=== PATIENT | female | born 1945 | race Caucasian/White ===

== ENCOUNTER 2017-08-08 18:41 | Emergency (ER) | payer OTHER ==
[~2017-08-08] VITALS: Ht 152.4 cm; Wt 56.2 kg
[2017-08-08 18:47] VITALS: TEMP 36.9; Ht 152.4 cm; Wt 56.2 kg
[2017-08-08] MEDS ORDERED: LORAZEPAM 0.5 MG TAB SL STA (19:00)
[2017-08-08] MEDS ORDERED: LORAZEPAM 1 MG TAB SL STA (19:00)
--- NOTE | 2017-08-08 19:07 | EMERGENCY ROOM VISIT NOTE ---
History Report prepared by Peng: Hilary Jorge Under the Supervision of: Dr. Troy Camara M.D. First contact with patient: 18:56 Chief Complaint: HYPERTENSION Stated Complaint: HIGH BLOOD PRESSURE History of Present Illness The patient is a 72 year old female who presents to the Emergency Room with complaints of sudden hypertension beginning today. She states that she was at her doctor's office to get checked before her cataract surgery. She reports that she was told her blood pressure was high, and states that she immediately had anxiety. She states that she did not have a headache or other symptoms, and would not have known that her blood pressure was elevated unless she was told. She reports that she has had hypertension before, and states that she is not on medications for it anymore. Source of History: patient Onset: today Position: other (global) Quality: other (hypertension ) Timing: other (sudden) Associated Symptoms: No headache Note: Associated symptoms: anxiety Review of Systems See HPI for pertinent positives & negatives. A total of 10 systems reviewed and were otherwise negative. Past Medical & Surgical Patient denies pertinent past medical and surgical history. Family History No pertinent family history Social History Smoking Status: Never Smoker Marital Status: Housing Status: lives with significant other Current/Historical Medications Scheduled Amlodipine Besylate (Norvasc), 1 TAB PO DAILY Allergies Coded Allergies: Penicillins (Verified Allergy, Unknown, HIVES, 08/08/17) Physical Exam Vital Signs Date Time Temp Pulse Resp B/P (MAP) Pulse Ox O2 Delivery O2 Flow Rate FiO2 08/08/17 20:15 91 20 180/93 98 Room Air 08/08/17 19:29 96 08/08/17 18:47 36.9 113 18 202/82 96 Room Air Physical Exam GENERAL: Patient is in no acute distress. Slightly anxious. HEENT: No acute trauma, normocephalic atraumatic, mucous membranes moist, no nasal congestion, no scleral icterus. NECK: No stridor, no adenopathy, no meningismus, trachea is midline. LUNGS: Clear to auscultation bilaterally, no wheeze, no rhonchi, breath sounds equal. HEART: Without murmurs gallops or rubs, regular rate and rhythm. ABDOMEN: Soft, nontender, bowel sounds positive, no hernias, no peritonitis. EXTREMITIES: No cyanosis or edema, full range of motion of all the joints without pain or difficulty, no signs for acute trauma. NEUROLOGIC: Oriented x 3, no acute motor or sensory deficits, no focal weakness. SKIN: No rash, no jaundice, no diaphoresis. Medical Decision & Procedures ER Provider Diagnostic Interpretation: Radiology results as stated below per my review and radiologist interpretation: CHEST ONE VIEW PORTABLE HISTORY: 72 years-old Female EVALUATE ALTERED MENTAL STATUS/WEAKNESS acute altered mental status COMPARISON: None available TECHNIQUE: Portable AP view of the chest FINDINGS: Cardiac silhouette is within normal limits in size. Atherosclerosis of the aorta. No pneumothorax, pleural effusion, focal airspace consolidation or overt pulmonary edema. Bones of the chest appear grossly intact. IMPRESSION: No acute process. The above report was generated using voice recognition software. It may contain grammatical, syntax or spelling errors. Electronically signed by: Geronimo Fernando M.D. 08/08/2017 8:16 PM Dictated Date/Time: 08/08/2017 8:15 PM Laboratory Results 08/08/17 19:20 Red Blood Count 5.16, Mean Corpuscular Volume 87.8, Mean Corpuscular Hemoglobin 29.8, Mean Corpuscular Hemoglobin Concent 34.0, Mean Platelet Volume 10.8, Neutrophils (%) (Auto) 60.2, Lymphocytes (%) (Auto) 25.8, Monocytes (%) (Auto) 12.7, Eosinophils (%) (Auto) 0.7, Basophils (%) (Auto) 0.3, Neutrophils # (Auto ) 4.37, Lymphocytes # (Auto) 1.87, Monocytes # (Auto) 0.92, Eosinophils # (Auto ) 0.05, Basophils # (Auto) 0.02 08/08/17 19:20 Test 08/08/17 17:10 08/08/17 19:20 Urine Color YELLOW Urine Appearance CLEAR (CLEAR) Urine pH 7.5 (4.5-7.5) Urine Specific Emery 1.011 (1.000-1.030) Urine Protein NEG (NEG) Urine Glucose (UA) NEG (NEG) Urine Ketones NEG (NEG) Urine Occult Blood NEG (NEG) Urine Nitrite NEG (NEG) Urine Bilirubin NEG (NEG) Urine Urobilinogen NEG (NEG) Urine Leukocyte Esterase NEG (NEG) White Blood Count 7.25 K/uL (4.8-10.8) Red Blood Count 5.16 M/uL (4.2-5.4) Hemoglobin 15.4 g/dL (12.0-16.0) Hematocrit 45.3 % (37-47) Mean Corpuscular Volume 87.8 fL (80-100) Mean Corpuscular Hemoglobin 29.8 pg (25-34) Mean Corpuscular Hemoglobin Concent 34.0 g/dl (32-36) Platelet Count 290 K/uL (130-400) Mean Platelet Volume 10.8 fL (7.4-10.4) Neutrophils (%) (Auto) 60.2 % Lymphocytes (%) (Auto) 25.8 % Monocytes (%) (Auto) 12.7 % Eosinophils (%) (Auto) 0.7 % Basophils (%) (Auto) 0.3 % Neutrophils # (Auto) 4.37 K/uL (1.4-6.5) Lymphocytes # (Auto) 1.87 K/uL (1.2-3.4) Monocytes # (Auto) 0.92 K/uL (0.11-0.59) Eosinophils # (Auto) 0.05 K/uL (0-0.5) Basophils # (Auto) 0.02 K/uL (0-0.2) RDW Standard Deviation 46.0 fL (36.4-46.3) RDW Coefficient of Variation 14.3 % (11.5-14.5) Immature Granulocyte % (Auto) 0.3 % Immature Granulocyte # (Auto) 0.02 K/uL (0.00-0.02) Anion Gap 6.0 mmol/L (3-11) Est Creatinine Clear Calc Drug Dose 38.8 ml/min Estimated GFR () 64.3 Estimated GFR (Non- 55.5 BUN/Creatinine Ratio 13.8 (10-20) Calcium Level 9.5 mg/dl (8.5-10.1) Total Bilirubin 0.4 mg/dl (0.2-1) Aspartate Amino Transf (AST/SGOT) 25 U/L (15-37) Alanine Aminotransferase (ALT/SGPT) 23 U/L (12-78) Alkaline Phosphatase 102 U/L (45-117) Troponin I < 0.015 ng/ml (0-0.045) Total Protein 10.0 gm/dl (6.4-8.2) Albumin 4.0 gm/dl (3.4-5.0) Globulin 6.0 gm/dl (2.5-4.0) Albumin/Globulin Ratio 0.7 (0.9-2) Thyroid Stimulating Hormone (TSH) 2.210 uIu/ml (0.300-4.500) Laboratory results reviewed by me. Medications Administered Medications (Trade) Dose Ordered Sig/Fabiola Route Start Time Stop Time Status Last Admin Dose Admin Lorazepam (Ativan Tab) 0.5 mg NOW STAT SL 08/08/17 19:00 08/08/17 19:03 DC 08/08/17 19:28 0.5 MG Amlodipine Besylate (Norvasc Tab) 5 mg NOW ONCE PO 08/08/17 20:30 08/08/17 20:31 DC 08/08/17 20:32 5 MG ECG Indication: other (hypertension) Rate (beats per minute): 100 Rhythm: normal sinus Findings: other (non-specific diffuse ST change, no ST elevation) Change: Patient's electrocardiogram interpreted by me. ED Course 1858: The patient was evaluated in room A9B. A complete history and physical exam was performed. 1899: Ordered Ativan Tab 0.5 mg SL. 2029: Ordered Amlodipine Besylate 5 mg PO. 2119: Reevaluated the patient. Discussed results and discharge instructions: She verbalized understanding and agreement. The patient is ready for discharge. Medical Decision The patient is a 72 year old female who presents to the ED with complaints of hypertension. Differential diagnoses considered include anxiety, worry, hypertension, renal failure, thyroid disease, cardiac ischemia, and anemia. There is no leukocytosis or concerning anemia. No significant electrolyte abnormality, kidney failure or hepatitis. The patient appears to be in a euthyroid state. EKG shows a normal sinus rhythm with some nonspecific ST change, no acute ischemia. Cardiac enzyme testing times one is not consistent with acute cardiac injury. Urinalysis does not show infection. Chest film does not show mediastinal widening, cardiomegaly or CHF. The patient was given oral Ativan, this really did not help her blood pressure that much. She was given a dose of oral Norvasc. The patient likely is in need of blood pressure medication. She had been on anti-hypertensive medications in the past. She will be started on Norvasc daily. She will follow with her doctor in a few days to see how her blood pressure is doing. She can return here if worsening. Medication Reconcilliation Current Medication List: was personally reviewed by me Blood Pressure Screening Patient's blood pressure: Elevated blood pressure Blood pressure disposition: Referred to PCP Impression Primary Impression: Hypertension Scribe Attestation The scribe's documentation has been prepared under my direction and personally reviewed by me in its entirety. I confirm that the note above accurately reflects all work, treatment, procedures, and medical decision making performed by me. Departure Information Dispostion Home / Self-Care Prescriptions Amlodipine Besylate (NORVASC) 5 Mg Tab 1 TAB PO DAILY for 30 Days, #30 TAB 5 Refills Prov: Troy Camara M.D. 08/08/17 Referrals No Doctor, Assigned (PCP) Jamie Martinez M.D. Forms HOME CARE DOCUMENTATION FORM, IMPORTANT VISIT INFORMATION, WORK / SCHOOL INSTRUCTIONS Patient Instructions My [facility] [employer] Additional Instructions use norvasc daily 5 mg see ej alejandre this week for a recheck and blood pressure check return if worsening lab testing today was all ok
[2017-08-08 19:33] LABS: BASO % 0.3 %; BASO ABS # 0.02 K/uL (0-0.2); EOS % 0.7 %; EOS ABS # 0.05 K/uL (0-0.5); HEMATOCRIT 45.3 % (37-47); HEMOGLOBIN 15.4 g/dL (12.0-16.0); IG# 0.02 K/uL (0.00-0.02); LYMPH % 25.8 %; LYMPH ABS # 1.87 K/uL (1.2-3.4); MEAN CELL VOLUME 87.8 fL (80-100); MEAN CORPUSCULAR HEMOGLOBIN 29.8 pg (25-34); MEAN PLATELET VOLUME 10.8 fL (7.4-10.4); MONO % 12.7 %; MONO ABS # 0.92 K/uL (0.11-0.59); NEUT % 60.2 %; NEUT ABS # 4.37 K/uL (1.4-6.5); PLATELET COUNT 290 K/uL (130-400); RED CELL DISTRIBUTION WIDTH CV 14.3 % (11.5-14.5); WHITE BLOOD COUNT 7.25 K/uL (4.8-10.8)
[2017-08-08 19:53] LABS: ALT/SGPT 23 U/L (12-78); AST/SGOT 25 U/L (15-37); BLOOD UREA NITROGEN 14 mg/dl (7-18); CALCIUM 9.5 mg/dl (8.5-10.1); CARBON DIOXIDE 27 mmol/L (21-32); GLUCOSE 104 mg/dl (70-99); SODIUM 136 mmol/L (136-145)
[2017-08-08 20:03] LABS: ALKALINE PHOSPHATASE 102 U/L (45-117)
[2017-08-08 20:15] VITALS: BP 180/93; PULSE 91; O2SAT 98
--- NOTE | 2017-08-08 20:17 | DIAGNOSTIC IMAGING REPORT ---
CHEST ONE VIEW PORTABLE HISTORY: 72 years-old Female EVALUATE ALTERED MENTAL STATUS/WEAKNESS acute altered mental status COMPARISON: None available TECHNIQUE: Portable AP view of the chest FINDINGS: Cardiac silhouette is within normal limits in size. Atherosclerosis of the aorta. No pneumothorax, pleural effusion, focal airspace consolidation or overt pulmonary edema. Bones of the chest appear grossly intact. IMPRESSION: No acute process. The above report was generated using voice recognition software. It may contain grammatical, syntax or spelling errors. Electronically signed by: Geronimo Fernando M.D. 08/08/2017 8:16 PM Dictated Date/Time: 08/08/2017 8:15 PM
[2017-08-08] MEDS ORDERED: AMLODIPINE BESYLATE 5 MG TAB PO ONE (20:30)
[2017-08-08] MEDS ORDERED: AMLO5TAB2 PO (21:21)
== END 2017-08-08 21:30 | disposition home or self-care (01) ==
LOC: C.EDB 18:43 → C.EDA 21:30
DX: I10 Essential (primary) hypertension (principal); F41.9 Anxiety disorder, unspecified